=== PATIENT | female | born 1990 | race Caucasian/White ===

== ENCOUNTER 2020-04-12 12:52 | Outpatient (CLI) | payer MEDICAID ==
[2020-04-12 13:55] LABS: APPEARANCE,URINE SLIGHTLY-CLOUDY; BILIRUBIN,URINE NEGATIVE (NEGATIVE); COLOR,URINE PINK; GLUCOSE, URINE NEGATIVE (NEGATIVE); KETONES,URINE NEGATIVE (NEGATIVE); LEUKOCYTE ESTERASE,URINE NEGATIVE (NEGATIVE); NITRITE,URINE NEGATIVE (NEGATIVE); PROTEIN,URINE 100 mg/dL (NEGATIVE); URINE SPECIFIC GRAVITY 1.011; UROBILINOGEN,URINE NEGATIVE mg/dL (<2.0)
[2020-04-12 14:09] LABS: URINE AMPHETAMINES SCREEN NEGATIVE; URINE BARBITURATES SCREEN NEGATIVE; URINE BENZODIAZEPINES SCREEN NEGATIVE; URINE COCAINE SCREEN NEGATIVE; URINE MARIJUANA (THC) SCREEN NEGATIVE; URINE METHADONE SCREEN NEGATIVE; URINE PHENCYCLIDINE SCREEN NEGATIVE
--- NOTE | 2020-04-12 16:11 | RADIOLOGY REPORT (SQ) ---
EXAM DESCRIPTION: U/S OB LIMITED IMAGES COMPLETED DATE/TIME: 04/12/2020 3:52 pm REASON FOR STUDY: cervical length, evaluate placenta-bleed? COMPARISON: None. TECHNIQUE: Limited transabdominal grayscale ultrasound for evaluation of specific requested obstetri hang parameters. LIMITATIONS: None. FINDINGS: CERVICAL LENGTH: 4.6 cm in length, Closed. SELINA: Visually adequate FHR: 141 beats per minute. PLACENTA: Posterior grade 1, no abruption or previa ANATOMY: Not assessed OTHER: No other significant findings. IMPRESSION: Posterior placenta grade 1. No abruption or previa Cervix closed, 4.6 cm in length Trimester of : Second trimester - 13 weeks 1 day to 27 weeks 6 days. TECHNICAL DOCUMENTATION: JOB ID: [id number] 2010 [employer]- All Rights Reserved Reading location - IP/workstation name: [email or web address]
[2020-04-12 16:45] LABS: ABSOLUTE EOSINOPHILS # (AUTO) 0.1 10^3/uL (0.0-0.6); ABSOLUTE LYMPHOCYTES (AUTO) 1.4 10^3/uL (0.5-4.7); ABSOLUTE MONOCYTES (AUTO) 0.3 10^3/uL (0.1-1.4); ABSOLUTE NEUT (AUTO) 9.2 10^3/uL (1.7-8.2); BASOPHILS % (AUTO) 0.4 % (0-2); EOSINOPHILS % (AUTO) 0.6 % (0-6); HEMATOCRIT 31.9 % (36.0-47.0); HEMOGLOBIN 11.1 g/dL (12.0-15.5); LYMPHOCYTES % (AUTO) 12.8 % (13-45); MEAN CORPUSCULAR HEMOGLOBIN 29.1 pg (27.0-33.4); MEAN CORPUSCULAR HGB CONC 34.9 g/dL (32.0-36.0); MEAN CORPUSCULAR VOLUME 83 fl (80-97); MONOCYTES % (AUTO) 2.7 % (3-13); PLATELET COUNT 322 10^3/uL (150-450); RED BLOOD COUNT 3.83 10^6/uL (3.72-5.28); RED CELL DISTRIBUTION WIDTH 13.9 % (11.5-14.0); SEGMENTED NEUTROPHILS % (AUTO) 83.5 % (42-78); TOTAL CELLS COUNTED % (AUTO) 100 %
[2020-04-12 16:56] LABS: INTERNATIONAL RATION (INR) 0.95; PROTHROMBIN TIME 12.7 SEC (11.4-15.4)
[2020-04-12 16:57] LABS: FIBRINOGEN 822 mg/dL (209-497); PARTIAL THROMBOPLASTIN TIME 25.8 SEC (23.5-35.8)
[2020-04-12 18:15] LABS: CHLAM PCR NOT DETECTED (NOT DETECT)
== END 2020-04-12 17:30 | disposition home or self-care (01) ==
LOC: LC 12:52
PROVIDERS: ATTEND Obstetrics & Gynecology
DX: O46.92 Antepartum hemorrhage, unspecified, second trimester (principal); Z3A.20 20 weeks gestation of pregnancy
CPT/HCPCS: 36415; 76815; 80307; 81001; 85025; 85384; 85610; 85730; 86850; 86900; 86901; 87491; 87591; 94760

== ENCOUNTER 2020-08-03 15:57 | Outpatient (CLI) | payer MEDICAID ==
--- NOTE | 2020-08-03 17:10 | Non Stress Test Report ---
Non Stress Test Datetime Report Generated by CPN: 08/03/2020 17:10 DEMOGRAPHIC Test Number: 1 EGA NST: 36.3 INDICATION Indication for Study (NST) Other: Repeat NST from Office VITAL SIGNS Temperature - NST: 98.4 Pulse - NST: 89 RESP - NST: 20 NBPSYS NST: 142 NBPDIA NST: 75 MONITORING Monitor Explained: Monitor Explained; Test Explained; Patient Verbalized Understanding Time on Monitor: 08/03/2020 16:05 Time off Monitor: 08/03/2020 17:03 NST Duration: 58 NST INTERVENTIONS NST Interventions: PO Hydration; Reposition Patient Physician Notified NST: P. Lea CNM BABY A: [id number] BABY A Movement : Present Contraction Frequency : none FHR Baseline : 130 Accelerations : 15X15 Decelerations : None Variability : Moderate 6-25bpm NST Review: Meets Criteria for Reactive NST NST Review and Verified By : RAY Chi NST Results: Reactive NST REPORT Report Trigger: Send Report
== END 2020-08-03 17:03 | disposition home or self-care (01) ==
LOC: LC 15:57
PROVIDERS: ATTEND Obstetrics & Gynecology Gynecology
DX: Z34.83 Encounter for supervision of other normal pregnancy, third trimester (principal); Z3A.36 36 weeks gestation of pregnancy
CPT/HCPCS: 59025

== ENCOUNTER 2020-08-25 05:02 | Inpatient (IN) | payer MEDICAID ==
[2020-08-25] MEDS ORDERED: CEFAZOLIN 1 GM/D5W RTU 1 GM/50 ML RTUPB IV PRN (05:28)
[2020-08-25] MEDS ORDERED: CEFAZOLIN 2 GM/D5W RTU 2 GM/50 ML RTUPB IV PRN (05:28)
[2020-08-25 06:19] LABS: ABSOLUTE EOSINOPHILS # (AUTO) 0.1 10^3/uL (0.0-0.6); ABSOLUTE MONOCYTES (AUTO) 0.4 10^3/uL (0.1-1.4); EOSINOPHILS % (AUTO) 1.4 % (0-6); MEAN CORPUSCULAR VOLUME 80 fl (80-97); TOTAL CELLS COUNTED % (AUTO) 100 %
[2020-08-25 06:24] LABS: ABSOLUTE LYMPHOCYTES (AUTO) 1.3 10^3/uL (0.5-4.7); ABSOLUTE NEUT (AUTO) 5.7 10^3/uL (1.7-8.2); BASOPHILS % (AUTO) 0.3 % (0-2); HEMATOCRIT 30.6 % (36.0-47.0); HEMOGLOBIN 10.3 g/dL (12.0-15.5); LYMPHOCYTES % (AUTO) 17.7 % (13-45); MEAN CORPUSCULAR HEMOGLOBIN 26.9 pg (27.0-33.4); MEAN CORPUSCULAR HGB CONC 33.7 g/dL (32.0-36.0); MONOCYTES % (AUTO) 5.4 % (3-13); PLATELET COUNT 263 10^3/uL (150-450); RED BLOOD COUNT 3.83 10^6/uL (3.72-5.28); RED CELL DISTRIBUTION WIDTH 15.4 % (11.5-14.0); SEGMENTED NEUTROPHILS % (AUTO) 75.2 % (42-78); WHITE BLOOD COUNT 7.6 10^3/uL (4.0-10.5)
[2020-08-25] MEDS ORDERED: RINGERS SOLUTION,LACTATED 1,000 ML IV PRN ×2 (06:25→09:18)
[2020-08-25] MEDS ORDERED: RINGERS SOLUTION,LACTATED 1,000 ML IV ONE (06:30)
[2020-08-25] MEDS ORDERED: MIDAZOLAM 2 MG/2 ML INJ ONE ×2 (07:18→08:46)
[2020-08-25] MEDS ORDERED: ONDANSETRON HCL INJ/PF 4 MG/2 ML SDV ONE (07:18)
[2020-08-25] MEDS ORDERED: OXYTOCIN 10 UNIT/ML VIAL ONE (07:18)
[2020-08-25] MEDS ORDERED: OXYTOCIN/0.9 % SODIUM CHLORIDE 30 UNIT/500 ML RTUINJ ONE (07:18)
[2020-08-25] MEDS ORDERED: FENTANYL CITRATE INJ/PF 100 MCG/2 ML AMPUL ONE ×2 (07:18→08:46)
[2020-08-25] MEDS ORDERED: MORPHINE SULFATE 10 MG/ML INJ ONE (07:18)
[2020-08-25 07:26] LABS: APPEARANCE,URINE CLEAR; BILIRUBIN,URINE NEGATIVE (NEGATIVE); COLOR,URINE STRAW; GLUCOSE, URINE NEGATIVE (NEGATIVE); KETONES,URINE NEGATIVE (NEGATIVE); LEUKOCYTE ESTERASE,URINE SMALL (NEGATIVE); NITRITE,URINE NEGATIVE (NEGATIVE); PROTEIN,URINE NEGATIVE (NEGATIVE); URINE SPECIFIC GRAVITY 1.005; UROBILINOGEN,URINE NEGATIVE mg/dL (<2.0)
[2020-08-25] MEDS ORDERED: CEFAZOLIN 2 GM/D5W RTU 2 GM/50 ML RTUPB IV ONE (07:29)
[2020-08-25 07:39] LABS: URINE AMPHETAMINES SCREEN NEGATIVE; URINE BARBITURATES SCREEN NEGATIVE; URINE BENZODIAZEPINES SCREEN NEGATIVE; URINE COCAINE SCREEN NEGATIVE; URINE MARIJUANA (THC) SCREEN NEGATIVE; URINE METHADONE SCREEN NEGATIVE; URINE PHENCYCLIDINE SCREEN NEGATIVE
[2020-08-25] MEDS ORDERED: CEFAZOLIN 1 GM/D5W RTU 1 GM/50 ML RTUPB IV ONE (07:44)
--- NOTE | 2020-08-25 09:10 | Warning Signs in Babies ---
VOD Warning Signs Datetime Report Generated by [facility]: 08/25/2020 09:10 VOD#608 -Warning Signs in Babies: Viewed with Parent(s)/Family (04/12/2020 13:06:Loreto Hutchinson RN)
[2020-08-25] MEDS ORDERED: PROMETHAZINE HCL INJ 25 MG/1 ML VIAL IV PRN ×3 (09:18→09:21)
[2020-08-25] MEDS ORDERED: OXYTOCIN/0.9 % SODIUM CHLORIDE 30 UNIT/500 ML RTUINJ IV PRN (09:18)
[2020-08-25] MEDS ORDERED: DIPH/PERTUSS(ACELL)/TETANUS VAC/PF 0.5 ML SYR (>=10YO) IM PRN (09:18)
[2020-08-25] MEDS ORDERED: ACETAMINOPHEN 1,000 MG/100 ML RTUPB IV PRN (09:18)
[2020-08-25] MEDS ORDERED: HYDROMORPHONE HCL INJ/PF 2 MG/ML AMPULE IV PRN (09:18)
[2020-08-25] MEDS ORDERED: ACETAMINOPHEN 325 MG TABLET PO PRN (09:18)
[2020-08-25] MEDS ORDERED: MEASLES,MUMPS&RUBELLA VACC/PF 0.5 ML VIAL SUBCUT PRN (09:18)
[2020-08-25] MEDS ORDERED: SIMETHICONE 80 MG TAB.CHEW PO PRN (09:18)
[2020-08-25] MEDS ORDERED: OXYCODONE-ACETAMINOPHEN 5-325 MG TABLET PO PRN ×3 (09:18→09:21)
[2020-08-25] MEDS ORDERED: FENTANYL CITRATE INJ/PF 100 MCG/2 ML AMPUL IV PRN ×3 (09:21)
[2020-08-25] MEDS ORDERED: MEPERIDINE HCL/PF INJ 25 MG/1 ML DISP.SYRIN IV PRN (09:21)
[2020-08-25] MEDS ORDERED: DIPHENHYDRAMINE HCL 50 MG/ML VIAL IV PRN (09:21)
[2020-08-25] MEDS ORDERED: MORPHINE SULFATE 10 MG/ML INJ IV PRN (09:21)
[2020-08-25] MEDS ORDERED: KETOROLAC TROMETHAMINE INJ/PF 30 MG/1 ML SDV ONE (09:28)
[2020-08-25] MEDS ORDERED: HYDROMORPHONE HCL INJ/PF 2 MG/ML AMPULE ONE (09:29)
--- NOTE | 2020-08-25 09:29 | Brief Operative Note ---
BRIEF OPERATIVE REPORT DATE OF SURGERY: 08/25/20 TIME OF SURGERY: 08:20 PREOPERATIVE DIAGNOSIS: 30yo, , Breech presentation, A2GDM, Multiparity, Undesired Fetility, ASCUS HRHPV, H/o macrosomia POSTOPERATIVE DIAGNOSIS: EFRAIN - delivered SURGEON: ROMAN LAURA FINDINGS: Complete breech presentation, small less than 2cm posterior fibroids. COMPLICATIONS: None ESTIMATED BLOOD LOSS: 750 TISSUE REMOVED OR ALTERED: placenta and cord TECHNICAL PROCEDURE: Primary section with [place] BTL
--- NOTE | 2020-08-25 11:56 | Warning Signs in Babies ---
VOD Warning Signs Datetime Report Generated by [facility]: 08/25/2020 11:55 VOD#608 -Warning Signs in Babies: Needs to be viewed. (04/12/2020 13:06:Loreto Hutchinson RN)
--- NOTE | 2020-08-25 11:56 | Delivery Summary ---
Del Sum A-C Datetime Report Generated by CPN: 08/25/2020 11:55 DELIVERY PERSONNEL DELIVERY PERSONNEL: [id number] Delivery Doctor:: Karina Syed MD REGULATORY COMPLIANCE COORDINATOR:: Carlos Eduardo Villareal CRNA Composite Bond Worker:: Loreto Hutchinson RN Neonatal Nurse Practitioner:: SARY Fontanez Nursery Nurse:: Daniela Yan RN Data Conversion Analyst/SENIOR ONLINE MARKETING MANAGER: [facility] Data Conversion Analyst/SENIOR ONLINE MARKETING MANAGER: Bernarda [facility], [facility] MATERNAL INFORMATION Delivery Anesthesia: Spinal Medications After Delivery: Pitocin 30 Units in 500ml NS/D5W Meds After Delivery Comment: second bag of pitocin 30 units in 500mL NS/D5W Delivery QBL: 750 Maternal Complications: None LABOR SUMMARY EDC: 08/28/2020 00:00 No. Babies in Womb: 1 Attempted: No Labor Anesthesia: Epidural LABOR INFORMATION Reason for Induction: Not Applicable Oxytocin: N/A Group B Beta Strep: negative Antibiotics # of Doses: 1 Antibiotics Time of Last Dose: 08/25/2020 08:00 Name of Antibiotic Given: ancef 3 g Steroids Given: None Reason Steroids Not Administered: Not Applicable MEMBRANES Membranes Rupture Method: Artificial Rupture of Membranes: 08/25/2020 08:18 Length of Rupture (hr): 0.02 Amniotic Fluid Color: Clear Amniotic Fluid Amount: Large Amniotic Fluid Odor: Normal STAGES OF LABOR Stage 3 hr: 0 Stage 3 min: 2 VAGINAL DELIVERY Episiotomy: None Laceration #1: None Laceration Extension #1: N/A Laceration Repair: Not Applicable Sponge Count Correct: N/A Sharps Count Correct: N/A CSECTION DELIVERY Primary Indication: Breech Presentation CSection Urgency: Scheduled CSection Incidence: Primary Labor: N/A Elective: Elective CSection Incision: Lower Uterine Transverse Sterilization Procedure: [place] BABY A INFORMATION Delivery Date/Time: 08/25/2020 08:19 Method of Delivery: Nurse Controlled Delivery: No Born in Route : No : N/A Forceps: N/A Vacuum Extraction: N/A Shoulder Dystocia : No PRESENTATION/POSITION BABY A Presentation: Breech Cephalic Presentation: N/A Breech Presentation: Complete PLACENTA INFORMATION BABY A Placenta Delivery Time : 08/25/2020 08:21 Placenta Method of Delivery: Manual Removal Placenta Status: Delivered SCORES BABY A Heart Rate 1 min: >100 bpm Resp Effort 1 min: Good Cry Reflex Irritability 1 min: Cough or Sneeze or Pulls Away Muscle Tone 1 min: Active Motion Color 1 min: Blue/Pale Resuscitation Effort 1 min: Tactile Stimulation SCORE 1 MIN: 8 Heart Rate 5 min: >100 bpm Resp Effort 5 min: Good Cry Reflex Irritability 5 min: Cough or Sneeze or Pulls Away Muscle Tone 5 min: Active Motion Color 5 min: Body [place], Extremities Blue SCORE 5 MIN: 9 INFANT INFORMATION BABY A Gestational Age at Delivery: 39.4 Gestational Status: Full Term- 39- 40.6 Weeks Infant Outcome : Liveborn Infant Condition : Stable Infant Sex: Female IDENTIFICATION BABY A Infant Verification Date/Time: 08/25/2020 08:19 ID Band Number: [id number] Mother's Name Verified: Yes RN Verifying Infant: Joe Hutchinson, Rn Additional Verifying Personnel: Nura Heredia RN WEIGHT/LENGTH BABY A Infant Birthweight (gm): 3720 Infant Weight (lb): 8 Infant Weight (oz): 3 Length (in): 20.00 Length (cm): 50.80 CORD INFORMATION BABY A No. Cord Vessels: 3 Nuchal Cord : Around Neck x1, Loose Cord Blood Taken: Yes-For Storage (Mom's Blood type +) Suction: None ASSESSMENT BABY A Skin to Skin: Yes BABY B INFORMATION : N/A
--- NOTE | 2020-08-25 11:56 | Birth Certificate Data ---
Cert Data Datetime Report Generated by CPN: 08/25/2020 11:55 CERTIFICATE DATA Delivery Provider: Karina Syed MD (08/25/2020 08:00:Loreto Minooanjali Hutchinson, RN) 48b. Now Livin (04/12/2020 13:06:Patricia North, RN) RISK FACTORS IN THIS 49c. Previous Births: 0 (04/12/2020 13:06:Patricia North, RN) Mother's Height 50b. Height Inches: 63 (08/03/2020 16:32:QS system process) Mother's Weight 51b. Weight at Delivery (lbs): 257 (08/03/2020 16:32:QS system process) Onset of Labor 56a. PROM >12 Hrs: 0.02 (04/12/2020 13:06:QS system process) 57a. Induction of Labor: N/A (04/12/2020 13:06:Loreto Hutchinson RN) 57c. Non-Vertex Presentation A: N/A (04/12/2020 13:06:Loreto Hutchinson RN) 57d. Steroids - Lung Mat: None (04/12/2020 13:06:Loreto Hutchinson RN) 57d. Steroids - Lung Mat: Not Applicable (04/12/2020 13:06:Loreto Hutchinson RN) 57e. Antibiotics During Labor: 08/25/2020 08:00 (04/12/2020 13:06:Loreto Hutchinson RN) 57f. Mat [place] or Temp >100.4: 98.5 (04/12/2020 13:06:Loreto Hutchinson RN) 57g. Moderate/Heavy Meconium: Clear (04/12/2020 13:06:Loreto Hutchinson RN) 57h. Intolerance of Labor: Breech Presentation (04/12/2020 13:06:Loreto Hutchinson RN) 57i. Epidural/Spinal Anesthesia: Epidural (04/12/2020 13:06:Loreto Hutchinson RN) Method of Delivery 58a. Forceps - Unsuccessful A: N/A (04/12/2020 13:06:Loreto Hutchinson RN) 58b. Vacuum - Unsuccessful A: N/A (04/12/2020 13:06:Loreto Hutchinson RN) 58c. Presentation at 58c. Presentation at - A : N/A (04/12/2020 13:06:Loreto Hutchinson RN) 58c. Presentation at - A : Complete (04/12/2020 13:06:Loreto Hutchinson RN) 58c. Presentation at - A : Breech (04/12/2020 13:06:Loreto Hutchinson RN) Final Route and Method of Del 58d. Baby A Route/Delivery: (04/12/2020 13:06:Loreto Hutchinson RN) 58e. Trial of Labor Attempted: No (04/12/2020 13:06:Loreto Hutchinson RN) 58e. Trial of Labor Attempted A: N/A (04/12/2020 13:06:Loreto Hutchinson RN) 58e. Trial of Labor Attempted B: N/A (04/12/2020 13:06:Loretolouis Hutchinson, RN) Maternal Morbidity 59b. 3rd or 4th Degree Lacs: None (04/12/2020 13:06:Loreto Hutchinson, RN) Birthweight Baby A: 3720 (04/12/2020 13:06:Loreto Hutchinson, RN) 60a. Pounds : 8 (04/12/2020 13:06:QS system process) 60b. Ounces: 3 (04/12/2020 13:06:QS system process) 61. GA at Delivery Baby A: 39.4 (04/12/2020 13:06:Loreto Hutchinson RN) : Full Term- 39- 40.6 Weeks (04/12/2020 13:06:QS system process) 62a. 5 Minute Baby A: 9 (04/12/2020 13:06:QS system process)
[2020-08-25] MEDS: DOCUSATE SODIUM 100 MG CAPSULE PO SCH ×2 (12:15→17:29)
[2020-08-25] MEDS: PRENATAL VITAMIN W DHA CAPSULE PO SCH (12:16)
[2020-08-25] MEDS ORDERED: KETOROLAC TROMETHAMINE INJ/PF 30 MG/1 ML SDV IV SCH (14:00)
[2020-08-25] MEDS: OXYCODONE-ACETAMINOPHEN 5-325 MG TABLET PO PRN ×2 (15:31→21:58)
[2020-08-26] MEDS ORDERED: KETOROLAC TROMETHAMINE INJ/PF 30 MG/1 ML SDV IV SCH (02:00)
[2020-08-26 07:22] LABS: HEMATOCRIT 27.8 % (36.0-47.0); HEMOGLOBIN 9.3 g/dL (12.0-15.5); MEAN CORPUSCULAR HEMOGLOBIN 26.9 pg (27.0-33.4); MEAN CORPUSCULAR HGB CONC 33.6 g/dL (32.0-36.0); MEAN CORPUSCULAR VOLUME 80 fl (80-97); PLATELET COUNT 238 10^3/uL (150-450); RED BLOOD COUNT 3.47 10^6/uL (3.72-5.28); RED CELL DISTRIBUTION WIDTH 15.6 % (11.5-14.0); WHITE BLOOD COUNT 9.6 10^3/uL (4.0-10.5)
--- NOTE | 2020-08-26 08:18 | Operative Report ---
Operative Report DATE OF SURGERY: 08/25/20 PREOPERATIVE DIAGNOSIS: 30yo, , Breech presentation, A2GDM, Multiparity, Undesired Fetility, ASCUS HRHPV, H/o macrosomia POSTOPERATIVE DIAGNOSIS: EFRAIN - delivered OPERATION: Primary section with [facility] SURGEON: ROMAN LAURA ANESTHESIA: Spinal TISSUE REMOVED OR ALTERED: placenta and cord. bilateral portions of falloian tubes sent to pathology COMPLICATIONS: none ESTIMATED BLOOD LOSS: 700 QUANTITATIVE BLOOD LOSS: 750 INTRAOPERATIVE FINDINGS: Complete breech presentation, small less than 2cm posterior fibroids. baby girl delivered at 0819, Apgars 8/9. weight 8#3oz. PROCEDURE: Anesthesia: Spinal Anesthesia provider: [Susan Santiago CRNA, MD] Urine output: [300ml] IV fluids: [1300ml] Indications: [30yo at 39+4ega with persistent breech presentation and undesired fertility. She desires permanent sterilization. Her was complicated by A2GDM and breech presentation with history of macrosomia. The risks, benefits, alternatives were reviewed and she desires to proceed with planned procedure of Primary section and tubal sterilization.] Procedure: The patient was taken to the operating room where spinal anesthesia was obtained and found to be adequate. She was then prepped and draped in the normal sterile fashion and placed in the dorsal supine position with a leftward tilt. A Pfannenstiel skin incision was then made and carried through to the underlying layers of the fascia with the scalpel. The fascia was incised in the midline and the incision extended laterally with the Vazquez scissors. The superior aspect of the fascial incision was then grasped with Jyoti clamps elevated and the underlying rectus muscles dissected off [bluntly]. Attention was then turned to the inferior aspect of the fascial incision which in a similar fashion was grasped, tented up with Jyoti clamps, and the rectus muscles dissected off [bluntly]. The rectus muscles were then in the midline and the peritoneum at the amount identified and entered [bluntly]. The peritoneal incision was then extended superiorly and inferiorly with good visualization of the bladder. The bladder blade was inserted and the vesicouterine peritoneum identified grasped with [place] pickups and entered sharply with the Metzenbaum scissors. This incision was then extended laterally with the Metzenbaum scissors and a bladder flap created digitally. The bladder blade was then reinserted and the lower uterine segment incised in a transverse fashion with the scalpel. The uterine incision was then extended bluntly. The bladder blade was removed and the infant's head was delivered from cephalic presentation atraumatically. The nose and mouth were suctioned and the cord doubly clamped and cut. And the was handed off to waiting pediatricians. The placenta was then delivered spontaneously and the uterus exteriorized and cleared of all clots and debris. The uterine incision was then repaired with 1- 0 Vicryl in a running locked fashion. A second layer of the same suture was used to obtain hemostasis via imbrication of the initial layer. The bladder flap was then repaired with 3-0 chromic in a running fashion. The left fallopian tube was identified and followed out to the fimbriated end and plain gut tie placed distally times two then proximally times two and the intervening fallopian tube was excised. This was repeated on the patients right. Thus completing the bilateral tubal ligation via [place] method. The uterus was returned to the patient's abdomen and surgicel was placed for hemostasis. The gutters were cleared of all clots and debris. All operative sites were noted to be hemostatic. The fascia was reapproximated with 0 Vicryl in a running fashion from each lateral edge to the midline. The skin was closed with 3-0 Monocryl in a running subcuticular fashion with overlying Dermabond for additional dressing as well as wound closure. The patient tolerated the procedure well. Sponge lap needle and instrument counts are correct times 2. 3 g of Ancef were given prior to skin incision. The patient was taken to the recovery area awake and in stable condition.
[2020-08-26] MEDS: PRENATAL VITAMIN W DHA CAPSULE PO SCH (10:16)
[2020-08-26] MEDS: DOCUSATE SODIUM 100 MG CAPSULE PO SCH ×2 (10:17→17:17)
--- NOTE | 2020-08-26 11:28 | PDOC PROGRESS REPORT ---
Subjective-OB Progress Note for:: 08/26/20 Subjective: reports bleeding slowing, pain controlled with current meds. denies needs. Physical Exam (OB) Vital Signs: Temp Pulse Resp BP Pulse Ox 97.9 F 101 H 18 139/79 H 95 08/26/20 11:07 08/26/20 11:07 08/26/20 11:07 08/26/20 11:07 08/26/20 11:07 Intake & Output 08/25/20 08/26/20 08/27/20 06:59 06:59 06:59 Intake Total 883 2500 Output Total 1200 Balance 883 1300 - Dressing Removed: No Incision: Well Approximated Closure Type: Surgical Glue - Maternal Morbidity 59. Maternal Morbidity (serious complications experinced by the mother ass ociated with labor and delivery: None of the above - Abdomen Description: Tender Hernia Present: No Fundal Description: Firm, Midline Fundal Height: u/u - u/2 - Abdominal Distension: No distension - Extremities Lower extremities: Page's sign - neg Calf: Normal, Nontender Objective-Diagnostic Laboratory: 08/26/20 06:45 08/26/20 06:45 WBC 9.6 RBC 3.47 L Hgb 9.3 L Hct 27.8 L MCV 80 MCH 26.9 L MCHC 33.6 RDW 15.6 H Plt Count 238 Assessment and Plan(PN) - Assessment and Plan (1) Delivery by section for breech presentation Is this a current diagnosis for this admission?: Yes (2) Encounter for female sterilization procedure Is this a current diagnosis for this admission?: Yes - Time Spent with Patient Time with patient: Less than 15 minutes Medications reviewed and adjusted accordingly: Yes - Disposition Anticipated Discharge Disposition: Home, Self Care Anticipated Discharge Timeframe: within 48 hours
[2020-08-26] MEDS: OXYCODONE-ACETAMINOPHEN 5-325 MG TABLET PO PRN ×2 (13:36→18:43)
[2020-08-26] MEDS: IBUPROFEN 800 MG TABLET PO SCH ×3 (13:37→23:57)
[2020-08-27] MEDS: OXYCODONE-ACETAMINOPHEN 5-325 MG TABLET PO PRN (02:37)
[2020-08-27] MEDS: IBUPROFEN 800 MG TABLET PO SCH ×2 (05:25→11:39)
[2020-08-27] MEDS: DOCUSATE SODIUM 100 MG CAPSULE PO SCH (10:04)
[2020-08-27] MEDS: PRENATAL VITAMIN W DHA CAPSULE PO SCH (10:05)
--- NOTE | 2020-08-27 10:27 | PDOC DISCHARGE SUMMARY ---
Impression - Admit/DC Date/PCP Admission Date/Primary Care Provider: 08/25/20 05:02 Discharge Date: 08/27/20 - Discharge Diagnosis (1) Delivery by section for breech presentation Is this a current diagnosis for this admission?: Yes (2) Encounter for female sterilization procedure Is this a current diagnosis for this admission?: Yes - Additional Information Discharge Diet: Regular Discharge Activity: Balance Activity w/Rest, No Lifting Over 10 Pounds, No Lifting/Push/Pulling, Pelvic Rest, No tub bath Referrals: [facility] [Provider Group] (Please call and confirm 1 week f/u for an incision check. ) Prescriptions: Ibuprofen [Motrin 800 mg Tablet] 800 mg PO Q8HP PRN #60 tablet PRN Reason: Oxycodone HCl/Acetaminophen [Percocet 5-325 mg Tablet] 1 tab PO Q4HP PRN #30 tablet PRN Reason: Home Medications: Prenat 115/Iron Fum/Folic/Dss [ 19 Tablet] 1 each PO DAILY 08/03/20 Ibuprofen [Motrin 800 mg Tablet] 800 mg PO Q8HP PRN #60 tablet 08/27/20 Oxycodone HCl/Acetaminophen [Percocet 5-325 mg Tablet] 1 tab PO Q4HP PRN #30 tablet 08/27/20 Hospital Course 59. Maternal Morbidity (serious complications experinced by the mother associated with labor and delivery: None of the above Results Laboratory Results: WBC 9.6 10^3/uL (4.0-10.5) 08/26/20 06:45 RBC 3.47 10^6/uL (3.72-5.28) L 08/26/20 06:45 Hgb 9.3 g/dL (12.0-15.5) L 08/26/20 06:45 Hct 27.8 % (36.0-47.0) L 08/26/20 06:45 MCV 80 fl (80-97) 08/26/20 06:45 MCH 26.9 pg (27.0-33.4) L 08/26/20 06:45 MCHC 33.6 g/dL (32.0-36.0) 08/26/20 06:45 RDW 15.6 % (11.5-14.0) H 08/26/20 06:45 Plt Count 238 10^3/uL (150-450) 08/26/20 06:45 Lymph % (Auto) 17.7 % (13-45) 08/25/20 06:05 [place] % (Auto) 5.4 % (3-13) 08/25/20 06:05 Eos % (Auto) 1.4 % (0-6) 08/25/20 06:05 Baso % (Auto) 0.3 % (0-2) 08/25/20 06:05 Absolute Neuts (auto) 5.7 10^3/uL (1.7-8.2) 08/25/20 06:05 Absolute Lymphs (auto) 1.3 10^3/uL (0.5-4.7) 08/25/20 06:05 Absolute Monos (auto) 0.4 10^3/uL (0.1-1.4) 08/25/20 06:05 Absolute Eos (auto) 0.1 10^3/uL (0.0-0.6) 08/25/20 06:05 Absolute Basos (auto) 0.0 10^3/uL (0.0-0.2) 08/25/20 06:05 Seg Neutrophils % 75.2 % (42-78) 08/25/20 06:05 Urine Color STRAW 08/25/20 06:55 Urine Appearance CLEAR 08/25/20 06:55 Urine pH 7.0 (5.0-9.0) 08/25/20 06:55 Ur Specific [place] 1.005 08/25/20 06:55 Urine Protein NEGATIVE mg/dL (NEGATIVE) 08/25/20 06:55 Urine Glucose (UA) NEGATIVE mg/dL (NEGATIVE) 08/25/20 06:55 Urine Ketones NEGATIVE mg/dL (NEGATIVE) 08/25/20 06:55 Urine Blood NEGATIVE (NEGATIVE) 08/25/20 06:55 Urine Nitrite NEGATIVE (NEGATIVE) 08/25/20 06:55 Urine Bilirubin NEGATIVE (NEGATIVE) 08/25/20 06:55 Urine Urobilinogen NEGATIVE mg/dL (<2.0) 08/25/20 06:55 Ur Leukocyte Esterase SMALL (NEGATIVE) H 08/25/20 06:55 Urine WBC (Auto) 5 /HPF 08/25/20 06:55 Urine RBC (Auto) 0 /HPF 08/25/20 06:55 Urine Bacteria (Auto) 1+ /HPF 08/25/20 06:55 Squamous Epi Cells Auto 2 /HPF 08/25/20 06:55 Urine Mucus (Auto) RARE /LPF 08/25/20 06:55 Urine Ascorbic Acid NEGATIVE (NEGATIVE) 08/25/20 06:55 Urine Opiates Screen NEGATIVE 08/25/20 06:55 Urine Methadone Screen NEGATIVE 08/25/20 06:55 Ur Barbiturates Screen NEGATIVE 08/25/20 06:55 Ur Phencyclidine Scrn NEGATIVE 08/25/20 06:55 Ur Amphetamines Screen NEGATIVE 08/25/20 06:55 U Benzodiazepines Scrn NEGATIVE 08/25/20 06:55 Urine Cocaine Screen NEGATIVE 08/25/20 06:55 U Marijuana (THC) Screen NEGATIVE 08/25/20 06:55 COVID-19 Source See comment 08/21/20 14:20 COVID-19 (OLU) Not Detected (Not Detect) 08/21/20 14:20 Blood Type A POSITIVE 08/25/20 06:05 Antibody Screen NEGATIVE 08/25/20 06:05 Plan Plan of Treatment: follow up as scheduled at [facility] for incision check
[2020-08-27 11:10] VITALS: BP 139/79
== END 2020-08-27 12:42 | disposition home or self-care (01) | DRG 785 ==
LOC: 2S 05:02
PROVIDERS: ADMIT Student in an Organized Health Care Education/Training Program; ATTEND Student in an Organized Health Care Education/Training Program
PROC: 10D00Z1 Extraction of Products of Conception, Low, Open Approach (ICD-10-PCS; principal; 2020-08-25)
PROC: 0UB70ZZ Excision of Bilateral Fallopian Tubes, Open Approach (ICD-10-PCS; 2020-08-25)
DX: O32.1XX0 Maternal care for breech presentation, not applicable or unspecified (principal); O24.425 Gestational diabetes mellitus in childbirth, controlled by oral hypoglycemic drugs; Z20.828 Contact with and (suspected) exposure to other viral communicable diseases; O16.4 Unspecified maternal hypertension, complicating childbirth; O34.13 Maternal care for benign tumor of corpus uteri, third trimester; Z3A.39 39 weeks gestation of pregnancy; Z37.0 Single live birth
CPT/HCPCS: 1961; 36415; 80307; 81001; 85025; 85027; 86850; 86900; 86901; 87635; 88302; 88307; 94760; 94799; C9803; J0690; J1170; J1885; J2250; J2270; J2405; J2590; J3010; J3490; J7120